=== PATIENT | female | born 1945 | race Caucasian/White ===

== ENCOUNTER 2022-06-27 09:27 | Inpatient (IN) | payer MEDICARE, OTHER ==
[~2022-06-27] VITALS: Ht 165.1 cm; Wt 77.1 kg
[2022-06-27 09:59] LABS: BASOPHILS % 0.1 % (0.0-1.0); HEMATOCRIT 57.3 % (34.2-44.1); HEMOGLOBIN 19.5 g/dL (12.0-16.0); LYMPHOCYTES # (AUTO) 2.3 (1.0-3.2); LYMPHOCYTES % 15.2 % (18.0-39.1); MEAN CORPUSCULAR HEMOGLOBIN 30.6 pg (28-32); MONOCYTES # (AUTO) 1.1 (0.2-0.8); MONOCYTES % 7.4 % (4.4-11.3); NEUTROPHILS # (AUTO) 11.4 (2.1-6.9); NEUTROPHILS % 76.8 % (38.7-80.0); PLATELET COUNT 165 x10e3/uL (140-360); RED BLOOD COUNT 6.37 x10e6/uL (3.6-5.1); RED CELL DISTRIBUTION WIDTH 17.8 % (11.7-14.4)
[2022-06-27 10:13] LABS: INR 1.33
[2022-06-27 10:14] LABS: PARTIAL THROMBOPLASTIN TIME 25.8 seconds (23.8-35.5)
[2022-06-27 10:24] LABS: ALBUMIN/GLOBULIN RATIO 0.9 (0.8-2.0); ANION GAP 15.7 mmol/L (8-16); CALCIUM 9.5 mg/dL (8.4-10.2); CREATININE, SERUM 1.97 mg/dL (0.57-1.11); POTASSIUM 3.7 mmol/L (3.5-5.1)
[2022-06-27 10:29] LABS: CREATINE KINASE MB 2.3 ng/mL (0-5.0)
[2022-06-27] MEDS ORDERED: SODIUM CHLORIDE FLUSH 10 ML SYR INJ PRN (11:00)
[2022-06-27] MEDS ORDERED: CEFEPIME 2 GM in SODIUM CHLORIDE 0.9% 100 ML IV ONE (11:15)
[2022-06-27 11:16] LABS: CLARITY,URINE CLEAR (CLEAR); COLOR,URINE YELLOW (YELLOW); KETONES,URINE TRACE (NEGATIVE); LEUKOCYTE ESTERASE ,URINE TRACE (NEGATIVE); NITRITE,URINE NEGATIVE (NEGATIVE); PROTEIN,URINE DIPSTICK >=300 (NEGATIVE); URINE UROBILINOGEN 0.2 mg/dL (0.2 - 1)
[2022-06-27] MEDS: LACTATED RINGER'S 1,000 ML INJ SCH ×2 (11:27→17:17)
[2022-06-27 11:35] LABS: BACTERIA,URINE FEW /HPF; EPITHELIAL CELLS,URINE FEW /LPF; RBC,URINE >50 /HPF (0-5); WBC,URINE (MAN) >50 /HPF (0-5)
[2022-06-27] MEDS ORDERED: DEXTROSE 5%/0.45% SOD CHL 1,000 ML IV ONE (11:45)
[2022-06-27] MEDS ORDERED: Vancomycin IV 1 GM in SODIUM CHLORIDE 0.9% 250ML 250 ML IV ONE (12:00)
[2022-06-27 13:18] VITALS: BP 127/76
[2022-06-27 13:32] VITALS: BP 127/76
[2022-06-27 13:35] VITALS: BP 127/76
[2022-06-27 15:24] VITALS: BP 144/93
[2022-06-27] MEDS ORDERED: DOCUSATE SODIU100 MG PO (16:58)
[2022-06-27] MEDS ORDERED: TRAZODONE HCL50 MG PO (16:58)
[2022-06-27] MEDS ORDERED: ZESTRIL10 MG PO (16:58)
[2022-06-27] MEDS ORDERED: BUTALB-ACETAMI1 EACH (16:58)
[2022-06-27] MEDS ORDERED: ELIQUIS2.5 MG PO (16:58)
[2022-06-27] MEDS ORDERED: HUMALOG MI100 UNIT/2 SQ (16:58)
[2022-06-27] MEDS ORDERED: NYSTATIN1 EAC8 TOP (16:58)
[2022-06-27] MEDS ORDERED: CLARITIN10 MG PO (16:58)
[2022-06-27] MEDS ORDERED: AMLODIPINE BESYL5 MG PO (16:58)
[2022-06-27] MEDS ORDERED: AZO CRANBERRY1 EACH (16:58)
[2022-06-27] MEDS ORDERED: LASIX10 MG/ML PO (16:58)
[2022-06-27] MEDS ORDERED: ATENOLOL50 MG PO (16:58)
[2022-06-27] MEDS ORDERED: TRIAMCINOLONE A15 G1 TOP (16:58)
[2022-06-27] MEDS ORDERED: FARXIGA10 MG (16:58)
[2022-06-27] MEDS ORDERED: POTASSIUM CHLO10 ME1 PO (16:58)
[2022-06-27] MEDS ORDERED: CRESTOR10 MG PO (16:58)
[2022-06-27] MEDS ORDERED: TYLENOL325 MG PO (16:58)
[2022-06-27] MEDS ORDERED: ISOSORBIDE MONO20 MG PO (16:58)
[2022-06-27] MEDS ORDERED: GABAPENTIN100 MG PO (16:58)
[2022-06-27] MEDS ORDERED: CALCIUM + VITA1 EACH (16:58)
[2022-06-27] MEDS ORDERED: BENADRYL25 M1 PO (16:58)
[2022-06-27] MEDS ORDERED: ASPIRIN81 MG PO (16:58)
[2022-06-27] MEDS ORDERED: ACETAMIN/BUTALBITAL/CAFFEINE TAB PO PRN (18:00)
[2022-06-27] MEDS ORDERED: ENOXAPARIN SOD INJ 40 MG/0.4 ML SYR SC SCH (18:20)
[2022-06-27 19:49] LABS: CREATINE KINASE MB 2.4 ng/mL (0-5.0)
[2022-06-27 20:00] VITALS: BP 144/93
[2022-06-27 21:35] VITALS: BP 147/85
[2022-06-28] VITALS (8 sets, daily range): BP systolic 138–157; BP diastolic 88–102
[2022-06-28] MEDS: LACTATED RINGER'S 1,000 ML INJ SCH ×3 (04:18→21:23)
[2022-06-28 04:41] LABS: CREATINE KINASE MB 2.4 ng/mL (0-5.0)
[2022-06-28 06:08] LABS: CHOL/HDL RATIO 5.9 (3.0-3.6)
[2022-06-28] MEDS ORDERED: ASPIRIN 81 MG CHEW TAB PO SCH (09:00)
[2022-06-28] MEDS ORDERED: AMLODIPINE BESYLATE 5 MG TAB PO SCH (09:00)
[2022-06-28] MEDS ORDERED: ATENOLOL 50 MG TAB PO SCH (09:00)
[2022-06-28 12:10] LABS: BASOPHILS % 0.2 % (0.0-1.0); HEMATOCRIT 58.2 % (34.2-44.1); HEMOGLOBIN 19.5 g/dL (12.0-16.0); LYMPHOCYTES # (AUTO) 1.6 (1.0-3.2); LYMPHOCYTES % 12.1 % (18.0-39.1); MEAN CORPUSCULAR HEMOGLOBIN 30.6 pg (28-32); MEAN CORPUSCULAR HGB CONC 33.5 g/dL (31-35); MEAN CORPUSCULAR VOLUME 91.2 fL (81-99); MONOCYTES # (AUTO) 0.8 (0.2-0.8); MONOCYTES % 5.9 % (4.4-11.3); NEUTROPHILS # (AUTO) 10.7 (2.1-6.9); NEUTROPHILS % 81.3 % (38.7-80.0); PLATELET COUNT 149 x10e3/uL (140-360); RED BLOOD COUNT 6.38 x10e6/uL (3.6-5.1); RED CELL DISTRIBUTION WIDTH 18.2 % (11.7-14.4)
[2022-06-28 12:23] LABS: CALCIUM 9.1 mg/dL (8.4-10.2); CREATININE, SERUM 1.65 mg/dL (0.57-1.11)
[2022-06-28 12:47] LABS: CREATINE KINASE MB 3.1 ng/mL (0-5.0)
[2022-06-28] MEDS ORDERED: DEXTROSE 50% SYRINGE 50 ML IV PRN (18:15)
[2022-06-28] MEDS: AMLODIPINE BESYLATE 5 MG TAB PO SCH (21:00)
[2022-06-28] MEDS: APIXAB 2.5 MG TABLET PO SCH (21:00)
[2022-06-28] MEDS: DOCUSATE SODIUM LIQD 100 MG/10 ML UDC NG SCH (21:00)
[2022-06-28] MEDS: ATENOLOL 50 MG TAB PO SCH (21:00)
[2022-06-28] MEDS ORDERED: ISOSORBIDE MONONITRATE 30 MG TAB CR PO SCH (21:00)
[2022-06-28] MEDS: SIMVASTATIN 20 MG TAB PO SCH (21:00)
[2022-06-28] MEDS: ASPIRIN 81 MG CHEW TAB PO SCH (21:00)
[2022-06-29] VITALS (8 sets, daily range): BP systolic 118–167; BP diastolic 49–98
[2022-06-29] MEDS: LACTATED RINGER'S 1,000 ML INJ SCH ×3 (03:15→18:34)
[2022-06-29] MEDS: INSULIN LISPRO 100 UNIT/1 ML 3ML VIAL SQ SCH ×3 (06:49→18:33)
[2022-06-29] MEDS: APIXAB 2.5 MG TABLET PO SCH ×2 (09:56→21:53)
[2022-06-29] MEDS: LISINOPRIL 20 MG TAB PO SCH (09:56)
[2022-06-29] MEDS: ACETAMINOPHEN 325 MG TAB PO PRN (12:26)
[2022-06-29] MEDS ORDERED: MUPIROCIN 2% OINT 22 GM TUBE TOP SCH (13:00)
[2022-06-29] MEDS: DOCUSATE SODIUM LIQD 100 MG/10 ML UDC NG SCH (21:52)
[2022-06-29] MEDS: ASPIRIN 81 MG CHEW TAB PO SCH (21:52)
[2022-06-29] MEDS: SIMVASTATIN 20 MG TAB PO SCH (21:53)
[2022-06-29] MEDS: ATENOLOL 50 MG TAB PO SCH (21:53)
[2022-06-29] MEDS: MUPIROCIN 2% OINT 22 GM TUBE TOP SCH (21:54)
[2022-06-29] MEDS: AMLODIPINE BESYLATE 5 MG TAB PO SCH (21:55)
[2022-06-29] MEDS: INSULIN GLARGINE 100 UNITS/ML VIAL SQ SCH (21:57)
[2022-06-30] VITALS (8 sets, daily range): BP systolic 125–174; BP diastolic 85–113
[2022-06-30] MEDS: INSULIN LISPRO 100 UNIT/1 ML 3ML VIAL SQ SCH ×5 (01:00→21:00)
[2022-06-30] MEDS: ACETAMINOPHEN 325 MG TAB PO PRN ×2 (01:16→12:48)
[2022-06-30] MEDS: LACTATED RINGER'S 1,000 ML INJ SCH ×3 (03:15→22:04)
[2022-06-30 05:23] LABS: BASOPHILS % 0.1 % (0.0-1.0); EOSINOPHILS % 0.2 % (0.0-6.0); HEMATOCRIT 57.3 % (34.2-44.1); HEMOGLOBIN 19.3 g/dL (12.0-16.0); LYMPHOCYTES # (AUTO) 1.9 (1.0-3.2); LYMPHOCYTES % 13.6 % (18.0-39.1); MEAN CORPUSCULAR HEMOGLOBIN 30.6 pg (28-32); MEAN CORPUSCULAR HGB CONC 33.7 g/dL (31-35); MEAN CORPUSCULAR VOLUME 90.8 fL (81-99); MONOCYTES # (AUTO) 1.1 (0.2-0.8); MONOCYTES % 7.7 % (4.4-11.3); NEUTROPHILS # (AUTO) 10.7 (2.1-6.9); NEUTROPHILS % 77.9 % (38.7-80.0); PLATELET COUNT 174 x10e3/uL (140-360); RED BLOOD COUNT 6.31 x10e6/uL (3.6-5.1); RED CELL DISTRIBUTION WIDTH 18.1 % (11.7-14.4)
[2022-06-30 05:44] LABS: ANION GAP 12.7 mmol/L (8-16); CALCIUM 9.2 mg/dL (8.4-10.2); CREATININE, SERUM 1.31 mg/dL (0.57-1.11); POTASSIUM 3.7 mmol/L (3.5-5.1)
[2022-06-30] MEDS: ISOSORBIDE MONONITRATE 20 MG TAB NG SCH ×2 (08:28→16:09)
[2022-06-30] MEDS: APIXAB 2.5 MG TABLET PO SCH ×2 (08:29→22:06)
[2022-06-30] MEDS: LISINOPRIL 20 MG TAB PO SCH (08:29)
[2022-06-30] MEDS: HYDRALAZINE HCL 20 MG/ML VIAL IV PRN (08:30)
[2022-06-30 11:58] LABS: BASOPHILS % 0.2 % (0.0-1.0); EOSINOPHILS % 0.1 % (0.0-6.0); HEMATOCRIT 59.5 % (34.2-44.1); LYMPHOCYTES % 14.6 % (18.0-39.1); MEAN CORPUSCULAR HEMOGLOBIN 30.4 pg (28-32); MEAN CORPUSCULAR HGB CONC 33.6 g/dL (31-35); MEAN CORPUSCULAR VOLUME 90.6 fL (81-99); NEUTROPHILS # (AUTO) 10.9 (2.1-6.9); NEUTROPHILS % 77.5 % (38.7-80.0); PLATELET COUNT 180 x10e3/uL (140-360); RED BLOOD COUNT 6.57 x10e6/uL (3.6-5.1); RED CELL DISTRIBUTION WIDTH 18.5 % (11.7-14.4)
[2022-06-30] MEDS: DOCUSATE SODIUM LIQD 100 MG/10 ML UDC NG SCH (22:04)
[2022-06-30] MEDS: ATENOLOL 50 MG TAB PO SCH (22:05)
[2022-06-30] MEDS: AMLODIPINE BESYLATE 5 MG TAB PO SCH (22:05)
[2022-06-30] MEDS: ASPIRIN 81 MG CHEW TAB PO SCH (22:06)
[2022-06-30] MEDS: MUPIROCIN 2% OINT 22 GM TUBE TOP SCH (22:06)
[2022-06-30] MEDS: SIMVASTATIN 20 MG TAB PO SCH (22:06)
[2022-06-30] MEDS: INSULIN GLARGINE 100 UNITS/ML VIAL SQ SCH (22:36)
[2022-07-01] VITALS: BP 165/89
[2022-07-01] MEDS: HYDRALAZINE HCL 20 MG/ML VIAL IV PRN (05:37)
[2022-07-01] MEDS: LACTATED RINGER'S 1,000 ML INJ SCH ×2 (05:38→11:28)
[2022-07-01 05:40] LABS: BASOPHILS % 0.2 % (0.0-1.0); EOSINOPHILS # (AUTO) 0.1 (0.0-0.4); EOSINOPHILS % 0.4 % (0.0-6.0); HEMATOCRIT 59.4 % (34.2-44.1); HEMOGLOBIN 19.5 g/dL (12.0-16.0); LYMPHOCYTES # (AUTO) 2.2 (1.0-3.2); MEAN CORPUSCULAR HEMOGLOBIN 30.4 pg (28-32); MEAN CORPUSCULAR HGB CONC 32.8 g/dL (31-35); MEAN CORPUSCULAR VOLUME 92.7 fL (81-99); MONOCYTES # (AUTO) 0.9 (0.2-0.8); MONOCYTES % 6.4 % (4.4-11.3); NEUTROPHILS # (AUTO) 10.6 (2.1-6.9); NEUTROPHILS % 76.4 % (38.7-80.0); PLATELET COUNT 169 x10e3/uL (140-360); RED BLOOD COUNT 6.41 x10e6/uL (3.6-5.1); RED CELL DISTRIBUTION WIDTH 18.5 % (11.7-14.4)
[2022-07-01 05:55] VITALS: BP 161/101
[2022-07-01 08:00] VITALS: BP 148/96
[2022-07-01] MEDS: INSULIN LISPRO 100 UNIT/1 ML 3ML VIAL SQ SCH ×3 (08:00→16:57)
[2022-07-01 08:14] VITALS: BP 148/96
[2022-07-01] MEDS: APIXAB 2.5 MG TABLET PO SCH (09:50)
[2022-07-01] MEDS: LISINOPRIL 20 MG TAB PO SCH (09:51)
[2022-07-01] MEDS: ISOSORBIDE MONONITRATE 20 MG TAB NG SCH ×2 (09:51→16:55)
[2022-07-01] MEDS: ACETAMINOPHEN 325 MG TAB PO PRN (11:25)
[2022-07-01 12:00] VITALS: BP 128/92
[2022-07-01 16:05] VITALS: BP 150/97
[2022-07-01] MEDS ORDERED: Morphine 2mg Syringe 2 MG/ML SYR IV ONE (16:45)
== END 2022-07-01 17:33 | disposition hospice, inpatient (51) | DRG 64 ==
LOC: ER 09:30 → ERHOLD 12:40 → MED/SURG3 13:34
PROVIDERS: ADMIT Internal Medicine; ATTEND Internal Medicine
PROC: 5A09357 Assistance with Respiratory Ventilation, Less than 24 Consecutive Hours, Continuous Positive Airway Pressure (ICD-10-PCS; principal; 2022-06-27)
DX: I63.411 Cerebral infarction due to embolism of right middle cerebral artery (principal); A41.9 Sepsis, unspecified organism; N17.9 Acute kidney failure, unspecified; G81.94 Hemiplegia, unspecified affecting left nondominant side; N39.0 Urinary tract infection, site not specified; E87.0 Hyperosmolality and hypernatremia; D45 Polycythemia vera; I48.91 Unspecified atrial fibrillation; R13.10 Dysphagia, unspecified; F01.50 Vascular dementia, unspecified severity, without behavioral disturbance, psychotic disturbance, mood disturbance, and anxiety; B96.1 Klebsiella pneumoniae [K. pneumoniae] as the cause of diseases classified elsewhere; D64.9 Anemia, unspecified; G47.00 Insomnia, unspecified; E78.00 Pure hypercholesterolemia, unspecified; I25.10 Atherosclerotic heart disease of native coronary artery without angina pectoris; J34.89 Other specified disorders of nose and nasal sinuses; E11.22 Type 2 diabetes mellitus with diabetic chronic kidney disease; I12.9 Hypertensive chronic kidney disease with stage 1 through stage 4 chronic kidney disease, or unspecified chronic kidney disease; N18.9 Chronic kidney disease, unspecified; E77.8 Other disorders of glycoprotein metabolism; E88.09 Other disorders of plasma-protein metabolism, not elsewhere classified; Z20.822 Contact with and (suspected) exposure to COVID-19; Z66 Do not resuscitate; Z79.4 Long term (current) use of insulin; Z79.82 Long term (current) use of aspirin; Z79.01 Long term (current) use of anticoagulants
CPT/HCPCS: 36415; 51700; 70450; 70551; 71045; 72125; 74018; 74230; 80048; 80053; 80061; 81001; 82550; 82553; 82948; 83605; 83880; 84484; 85025; 85610; 85730; 87040; 87086; 87186; 93005; 93880; 94799; 95819; 99252; 99284; J0692; J0696; J1650; J1815; J2270; J7050